=== PATIENT | female | born 1935 | race Caucasian/White ===

== ENCOUNTER 2017-12-22 16:00 | Outpatient (RCR) | payer OTHER | END 2018-01-19 | disposition home or self-care (01) | LOC: PTY 16:00 | DX: M54.31 Sciatica, right side (principal); M54.32 Sciatica, left side ==

== ENCOUNTER 2018-02-02 16:00 | Outpatient (RCR) | payer OTHER | END 2018-02-19 | disposition home or self-care (01) | LOC: PTY 16:00 | DX: M54.31 Sciatica, right side (principal); M54.32 Sciatica, left side ==